=== PATIENT | female | born 1940 | race Caucasian/White ===

== ENCOUNTER 2019-07-08 09:15 | Day surgery (SDC) | payer MEDICARE, OTHER ==
[~2019-07-08] VITALS: Ht 170.2 cm; Wt 79.7 kg
[2019-07-08] VITALS (11 sets, daily range): BP systolic 115–150; BP diastolic 61–88
[2019-07-08] MEDS ORDERED: normal saline 1000ml 1,000 ML IV PRN (09:35)
[2019-07-08] MEDS ORDERED: diphenhydrAMINE 25mg capsule PO PRN (09:35)
[2019-07-08] MEDS ORDERED: NITR0.4T51 SL (09:38)
[2019-07-08] MEDS ORDERED: ASPI-12 PO (09:38)
[2019-07-08] MEDS ORDERED: FAMO-128 PO (09:38)
[2019-07-08] MEDS ORDERED: OM3-1CAP PO (09:38)
[2019-07-08] MEDS ORDERED: ATOR20TA PO (09:38)
[2019-07-08 10:11] LABS: BASOPHILS % (AUTO) 0.6 % (0-1); EOSINOPHILS # (AUTO) 0.1 X10'3 (0-0.9); EOSINOPHILS % (AUTO) 1.7 % (0-6); HEMATOCRIT 38.6 % (35.0-45.0); HEMOGLOBIN 13.1 g/dl (12.0-16.0); LYMPHOCYTES # (AUTO) 2.4 X10'3 (1.1-4.8); LYMPHOCYTES % (AUTO) 39.1 % (21-51); MEAN CORPUSCULAR HEMOGLOBIN 32.1 PG (27.0-31.0); MEAN CORPUSCULAR HGB CONC 33.9 g/dL (33.0-36.5); MEAN CORPUSCULAR VOLUME 94.8 FL (78-98); MEAN PLATELET VOLUME 8.4 FL (7.4-10.4); MONOCYTES # (AUTO) 0.6 X10'3 (0-0.9); MONOCYTES % (AUTO) 9.6 % (2-12); PLATELET COUNT 253 X10'3 (140-440); RED BLOOD COUNT 4.07 X10'6 (4.20-5.60); RED CELL DISTRIBUTION WIDTH 14.1 % (11.5-14.5); WHITE BLOOD COUNT 6.1 X10'3 (4.5-11.0)
[2019-07-08 10:27] LABS: ALBUMIN 3.8 G/DL (3.4-5.0); ANION GAP 9 (8-16); BLOOD UREA NITROGEN 12 MG/DL (7-18); BUN/CREATININE RATIO 15.6 (6.6-38.0); CHLORIDE 108 MMOL/L (99-107); CREATININE 0.77 MG/DL (0.40-0.90); GLUCOSE 92 MG/DL (70-104); POTASSIUM 3.9 MMOL/L (3.5-5.1); SODIUM 143 MMOL/L (135-145); eGFR 72 ML/MIN
[2019-07-08] MEDS ORDERED: heparin 1,000unit/ml 10ml vial 10 ML ONE (10:43)
[2019-07-08] MEDS ORDERED: fentaNYL/PF 50MCG/1 ML 2ML syringe ONE (10:43)
[2019-07-08] MEDS ORDERED: LIDOcaine 1% (10mg/ml)w/preservative injection 20ml MDV ONE (10:43)
[2019-07-08] MEDS ORDERED: iohexol 350MG/ML 100ml bottle IV ONE ×2 (10:43→11:35)
[2019-07-08] MEDS ORDERED: iohexol 350 MG/ML 50ML vial IV ONE (10:43)
[2019-07-08] MEDS ORDERED: midazolam 2 mg/2 ml injection ONE ×2 (10:43→11:38)
[2019-07-08] MEDS ORDERED: clopidogrel 300mg tablet ONE (12:00)
[2019-07-08] MEDS ORDERED: HYDROcodone/acetaminophen 10/325mg tab PO PRN (12:50)
[2019-07-08] MEDS ORDERED: acetaminophen 325mg tablet PO PRN (12:50)
[2019-07-08] MEDS ORDERED: HYDROcodone/acetaminophen 5mg/325mg tablet PO PRN (12:50)
[2019-07-08] MEDS ORDERED: proCHLORperazine 10 MG/2 ml inj IV PRN (12:50)
[2019-07-08] MEDS ORDERED: ondansetron/PF 4mg/2ml inj IV PRN (12:50)
== END 2019-07-08 17:15 | disposition home or self-care (01) ==
LOC: SSTAY O 09:15
PROVIDERS: ATTEND Internal Medicine Cardiovascular Disease
DX: R94.39 Abnormal result of other cardiovascular function study (principal); T82.858A Stenosis of other vascular prosthetic devices, implants and grafts, initial encounter; I25.10 Atherosclerotic heart disease of native coronary artery without angina pectoris; I10 Essential (primary) hypertension; Z79.899 Other long term (current) drug therapy; Z95.1 Presence of aortocoronary bypass graft; Z95.3 Presence of xenogenic heart valve; Y83.8 Other surgical procedures as the cause of abnormal reaction of the patient, or of later complication, without mention of misadventure at the time of the procedure; Y92.89 Other specified places as the place of occurrence of the external cause
CPT/HCPCS: 36415; 80048; 83735; 85025; 85610; 93005; 93459; 99152; 99153; C1769; C1874; C1894; C9600; J1644; J2001; J2250; J3010; J7030; Q0163; Q9967; A4620; A6258; C1751; C1760